=== PATIENT | female | born 1955 | race Hispanic/Latino ===

== ENCOUNTER 2024-04-01 10:16 | Emergency (ER) | payer OTHER ==
[~2024-04-01] VITALS: Ht 157.5 cm; Wt 57.2 kg
[~2024-04-01 10:16] MED LIST: AMOX1TAB16 PO; IBUP-2077 PO; INSU100I24 SQ; LISI30TA4 PO; METO50TA18 PO; PRAV10TA39 PO; PRED5TAB44 PO
[2024-04-01] MEDS: DEXTROSE 50%-WATER 50 ML DISP.SYRIN IV ONE ×2 (10:41→11:42)
[2024-04-01 11:02] LABS: ALBUMIN 2.7 g/dL (3.5-5.0); BILIRUBIN,TOTAL 0.4 mg/dL (0.2-1.0); CREATININE 0.8 mg/dL (0.5-1.0); POTASSIUM 3.4 mmol/L (3.5-5.1)
[2024-04-01 11:12] LABS: B-TYPE NATRIURETIC PEPTIDE 126 pg/mL (0-100)
[2024-04-01 11:13] LABS: APPEARANCE,URINE CLOUDY (CLEAR); BILIRUBIN,URINE NEGATIVE (NEGATIVE); COLOR,URINE LIGHT-ORANGE (YELLOW); GLUCOSE, URINE (UA) NEGATIVE (NEGATIVE); KETONES,URINE NEGATIVE (NEGATIVE); LEUKOCYTE ESTERASE ,URINE NEGATIVE Leu/uL (NEGATIVE); NITRATE,URINE NEGATIVE (NEGATIVE); OCCULT BLOOD,URINE NEGATIVE (NEGATIVE); PROTEIN,URINE 300 mg/dL (NEGATIVE); UROBILINOGEN,URINE 0.2 mg/dL (0.2-1.0)
[2024-04-01 11:15] LABS: ADD UA MICROSCOPIC YES
[2024-04-01 11:20] LABS: BASOPHILS # (AUTO) 0.05 K/uL (0.00-0.20); BASOPHILS % (AUTO) 0.6 % (0.0-5.0); EOSINOPHILS # (AUTO) 0.08 K/uL (0.00-0.70); EOSINOPHILS % (AUTO) 0.9 % (0.0-8.0); HEMATOCRIT 41.2 % (36-48); IMMATURE GRANULOCYTE ABSOLUTE 0.03 K/uL (0-1); LYMPHOCYTES # (AUTO) 2.4 K/uL (1.0-4.8); LYMPHOCYTES % (AUTO) 26.7 % (21.0-51.0); MEAN CORPUSCULAR HGB CONC 32.5 g/dL (32.0-36.0); MEAN CORPUSCULAR VOLUME 89.2 fL (79-99); MONOCYTES # (AUTO) 0.5 K/uL (0.1-1.0); MONOCYTES % (AUTO) 5.3 % (3.0-13.0); NEUTROPHILS % (AUTO) 66.2 % (40.0-77.0); PLATELET COUNT (AUTO) 258 K/uL (130-400); RED BLOOD CELL COUNT(AUTO) 4.62 MIL/uL (4.00-5.50); RED CELL DISTRIBUTION WIDTH 13.4 % (11.0-15.5); WHITE BLOOD COUNT (AUTO) 9.1 K/uL (4.8-10.8)
[2024-04-01 11:29] LABS: BACTERIA,URINE Many /HPF (None Seen); RBC,URINE 0-1 /HPF (0-1); SQUAMOUS EPITHELIAL CELL,UR Rare /HPF (0-2); WBC,URINE 0-1 /HPF (0-1)
[2024-04-01 13:36] VITALS: BP 170/69; PULSE 78; RESP 18; O2SAT 99
[2024-04-03] MEDS ORDERED: FERR-72 PO (10:00)
[2024-04-03] MEDS ORDERED: ONDA8TAB12 PO (10:03)
[2024-04-03] MEDS ORDERED: [UNRECOGNIZED DRUG - CODE] PO (10:03)
[2024-04-03] MEDS ORDERED: ALBU90AE2 IH (10:05)
[2024-04-05] MEDS ORDERED: AMOX1TAB16 PO (09:07)
== END 2024-04-01 14:51 | disposition home or self-care (01) ==
LOC: EDH 10:16
DX: E11.649 Type 2 diabetes mellitus with hypoglycemia without coma (principal); I10 Essential (primary) hypertension; E78.00 Pure hypercholesterolemia, unspecified; D64.9 Anemia, unspecified; Z79.899 Other long term (current) drug therapy; Z79.4 Long term (current) use of insulin
CPT/HCPCS: 99285; 96365; 70450; 71045; 82550; 84484; 80053; 83880; 85025; 87077; 87088; 87186; 82948 ×2; 81001; 36415; 93005; J7070

== ENCOUNTER 2024-05-16 16:11 | Observation (INO) | payer OTHER ==
[~2024-05-16] VITALS: Ht 154.9 cm; Wt 43.7 kg
[~2024-05-16 16:11] MED LIST changes: +ALBU90AE3 IH; +AMLO5TAB4 PO; -AMOX1TAB16 PO; +CEPH500B PO; +FERR-72 PO; -IBUP-2077 PO; -INSU100I24 SQ; +LEVO100T4 PO; +ONDA-245 PO; -PRED5TAB44 PO
[2024-05-16 16:34] LABS: BASOPHILS # (AUTO) 0.03 K/uL (0.00-0.20); BASOPHILS % (AUTO) 0.4 % (0.0-5.0); EOSINOPHILS # (AUTO) 0.02 K/uL (0.00-0.70); EOSINOPHILS % (AUTO) 0.2 % (0.0-8.0); HEMATOCRIT 34.8 % (36-48); IMMATURE GRANULOCYTE ABSOLUTE 0.03 K/uL (0-1); LYMPHOCYTES # (AUTO) 0.9 K/uL (1.0-4.8); LYMPHOCYTES % (AUTO) 10.8 % (21.0-51.0); MEAN CORPUSCULAR HEMOGLOBIN 33.8 pg (27.0-33.0); MEAN CORPUSCULAR HGB CONC 32.8 g/dL (32.0-36.0); MEAN CORPUSCULAR VOLUME 103.3 fL (79-99); MONOCYTES # (AUTO) 0.4 K/uL (0.1-1.0); MONOCYTES % (AUTO) 4.9 % (3.0-13.0); NEUTROPHILS % (AUTO) 83.3 % (40.0-77.0); PLATELET COUNT (AUTO) 285 K/uL (130-400); RED BLOOD CELL COUNT(AUTO) 3.37 MIL/uL (4.00-5.50); WHITE BLOOD COUNT (AUTO) 8.3 K/uL (4.8-10.8)
[2024-05-16 16:47] LABS: CREATININE 0.7 mg/dL (0.5-1.0); POTASSIUM 3.8 mmol/L (3.5-5.1)
[2024-05-16 16:52] LABS: ALBUMIN 2.1 g/dL (3.5-5.0); BILIRUBIN,TOTAL 0.2 mg/dL (0.2-1.0); TOTAL PROTEIN, SERUM 6.6 g/dL (6.0-8.3)
[2024-05-16 16:56] LABS: APPEARANCE,URINE CLEAR (CLEAR); BILIRUBIN,URINE NEGATIVE (NEGATIVE); COLOR,URINE LIGHT-YELLOW (YELLOW); GLUCOSE, URINE (UA) NEGATIVE (NEGATIVE); KETONES,URINE NEGATIVE (NEGATIVE); LEUKOCYTE ESTERASE ,URINE NEGATIVE Leu/uL (NEGATIVE); NITRATE,URINE NEGATIVE (NEGATIVE); OCCULT BLOOD,URINE MODERATE (NEGATIVE); PROTEIN,URINE NEGATIVE (NEGATIVE); UROBILINOGEN,URINE 0.2 mg/dL (0.2-1.0)
[2024-05-16] MEDS: CEFTRIAXONE 2GM VIAL IVPB ONE (16:57)
[2024-05-16] MEDS: DEXTROSE 5 % AND 0.9 % NACL 1,000 ML IV SCH (16:57)
[2024-05-16 17:04] LABS: ADD UA MICROSCOPIC YES
[2024-05-16 17:06] LABS: MUCUS,URINE RARE LPF (None Seen); RBC,URINE 0-1 /HPF (0-1); SQUAMOUS EPITHELIAL CELL,UR RARE /HPF (0-2); WBC,URINE 0-1 /HPF (0-1)
[2024-05-16] MEDS ORDERED: LACTULOSE 20 GM/30 ML UDCUP PO PRN (18:30)
[2024-05-16] MEDS ORDERED: HYDRALAZINE 20MG/ML VIAL IV PRN (18:30)
[2024-05-16] MEDS ORDERED: ONDANSETRON 4MG INJ IVP PRN (18:30)
[2024-05-16] MEDS ORDERED: LABETALOL 20MG SYG IV PRN (18:30)
[2024-05-16] MEDS: ERYTHROMYCIN BASE 0.5% OPHTH OINT 1 GM TUBE OS SCH (21:00)
[2024-05-16] MEDS: ACETAMINOPHEN 325 MG TAB PO PRN (21:38)
[2024-05-16] MEDS ORDERED: LORA0.5T83 PO (22:26)
[2024-05-16 23:00] VITALS: PULSE 65; RESP 18
[2024-05-16] MEDS: ALBUTEROL 0.083% 2.5 MG/3 ML INH IH PRN (23:00)
[2024-05-16 23:04] VITALS: PULSE 68; RESP 18; O2SAT 100
[2024-05-17] VITALS (14 sets, daily range): BP systolic 137–161; BP diastolic 56–77; PULSE 63–79; RESP 16–20; O2SAT 92–98
[2024-05-17 05:09] LABS: BASOPHILS # (AUTO) 0.03 K/uL (0.00-0.20); BASOPHILS % (AUTO) 0.5 % (0.0-5.0); EOSINOPHILS # (AUTO) 0.09 K/uL (0.00-0.70); EOSINOPHILS % (AUTO) 1.4 % (0.0-8.0); HEMATOCRIT 29.1 % (36-48); IMMATURE GRANULOCYTE ABSOLUTE 0.02 K/uL (0-1); LYMPHOCYTES # (AUTO) 1.3 K/uL (1.0-4.8); LYMPHOCYTES % (AUTO) 20.9 % (21.0-51.0); MEAN CORPUSCULAR HEMOGLOBIN 34.2 pg (27.0-33.0); MONOCYTES # (AUTO) 0.5 K/uL (0.1-1.0); MONOCYTES % (AUTO) 8.1 % (3.0-13.0); NEUTROPHILS # (AUTO) 4.4 K/uL (1.8-7.7); NEUTROPHILS % (AUTO) 68.8 % (40.0-77.0); PLATELET COUNT (AUTO) 238 K/uL (130-400); RED BLOOD CELL COUNT(AUTO) 2.72 MIL/uL (4.00-5.50); RED CELL DISTRIBUTION WIDTH 18.1 % (11.0-15.5); WHITE BLOOD COUNT (AUTO) 6.3 K/uL (4.8-10.8)
[2024-05-17 05:38] LABS: CREATININE 0.7 mg/dL (0.5-1.0); MAGNESIUM 1.7 mg/dL (1.80-2.40); PHOSPHORUS 3.4 mg/dL (2.5-4.9); POTASSIUM 3.5 mmol/L (3.5-5.1)
[2024-05-17] MEDS: LEVOTHYROXINE 100 MCG TABLET PO SCH (06:03)
[2024-05-17] MEDS ORDERED: POTASSIUM CHLORIDE 10MEQ/100ML 100 ML IV PRN (06:30)
[2024-05-17] MEDS ORDERED: POTASSIUM CHLORIDE 10% ELIXIR 20 MEQ/15 ML UDCUP PO PRN (06:30)
[2024-05-17] MEDS: MAGNESIUM 2GM PREMIX 50ML 50 ML IV PRN (06:32)
[2024-05-17] MEDS: PANTOPRAZOLE 40 MG TAB DR PO SCH (09:39)
[2024-05-17] MEDS: FERROUS SULFATE 325 MG TABLET.DR PO SCH (09:39)
[2024-05-17] MEDS: LISINOPRIL 20 MG TABLET PO SCH (09:39)
[2024-05-17] MEDS: METOPROLOL TARTRATE 50 MG TAB PO SCH (09:39)
[2024-05-17] MEDS: ENOXAPARIN SODIUM 40 MG/0.4 ML SYRINGE SQ SCH (09:39)
[2024-05-17] MEDS: AMLODIPINE 5 MG TAB PO SCH (09:40)
[2024-05-17] MEDS: ERYTHROMYCIN BASE 0.5% OPHTH OINT 1 GM TUBE OS SCH (13:27)
[2024-05-17 14:53] LABS: HEMOGLOBIN A1C 4.9 % (4.0-6.0)
[2024-05-17] MEDS: KCL 20 MEQ ERTAB PO PRN (20:51)
[2024-05-18] VITALS: BP 145/77; PULSE 57; RESP 18
[2024-05-18 03:45] VITALS: BP 142/70; PULSE 55; RESP 20
[2024-05-18 05:59] LABS: HEMATOCRIT 28.3 % (36-48); MEAN CORPUSCULAR HEMOGLOBIN 34.3 pg (27.0-33.0); MEAN CORPUSCULAR HGB CONC 32.2 g/dL (32.0-36.0); MEAN CORPUSCULAR VOLUME 106.8 fL (79-99); RED BLOOD CELL COUNT(AUTO) 2.65 MIL/uL (4.00-5.50); RED CELL DISTRIBUTION WIDTH 17.6 % (11.0-15.5); WHITE BLOOD COUNT (AUTO) 5.8 K/uL (4.8-10.8)
[2024-05-18 06:23] LABS: CREATININE 0.8 mg/dL (0.5-1.0); PHOSPHORUS 3.1 mg/dL (2.5-4.9); POTASSIUM 4.2 mmol/L (3.5-5.1)
[2024-05-18 06:57] VITALS: PULSE 70; RESP 20; O2SAT 99
[2024-05-18 08:00] VITALS: BP 158/71; PULSE 58; RESP 18; O2SAT 94
[2024-05-18 11:58] VITALS: BP 158/73; PULSE 58; RESP 19
[2024-05-18] MEDS ORDERED: INSU100I24 SQ (15:47)
[2024-05-18] MEDS ORDERED: INSU100V37 SQ (15:50)
== END 2024-05-18 17:40 | disposition home or self-care (01) ==
LOC: EDH 16:11 → EDHIP 18:28 → 3AH 21:30
PROVIDERS: ADMIT Internal Medicine Critical Care Medicine; ATTEND Internal Medicine Critical Care Medicine
DX: E11.649 Type 2 diabetes mellitus with hypoglycemia without coma (principal); H10.32 Unspecified acute conjunctivitis, left eye; D53.9 Nutritional anemia, unspecified; E88.09 Other disorders of plasma-protein metabolism, not elsewhere classified; E44.0 Moderate protein-calorie malnutrition; I10 Essential (primary) hypertension; E78.5 Hyperlipidemia, unspecified; E03.9 Hypothyroidism, unspecified; R41.82 Altered mental status, unspecified; R60.0 Localized edema; Z85.118 Personal history of other malignant neoplasm of bronchus and lung; Z79.4 Long term (current) use of insulin; Z85.528 Personal history of other malignant neoplasm of kidney; Z79.899 Other long term (current) drug therapy; Z68.1 Body mass index [BMI] 19.9 or less, adult
CPT/HCPCS: 96365; 84484; 80053; 83690; 85025 ×2; 87040 ×2; 82948 ×12; 82306; 83605; 81001; 36415 ×3; 71045 ×2; 93970; 99291; 93005; 94640; 94664; 96372 ×2; 96361 ×3; 96375; 83036; 83735 ×2; 84100 ×2; 80048 ×2; 82607; 82746; 85027; 97161; 97116; 84145; G0378 ×46; J7042; J0696; J3475; J1650 ×2

== ENCOUNTER 2024-07-28 08:31 | Inpatient (IN) | payer OTHER ==
[~2024-07-28] VITALS: Ht 160 cm; Wt 52.2 kg
[~2024-07-28 08:31] MED LIST changes: -CEPH500B PO; +INSU100V37 SQ; +LORA0.5T83 PO
[2024-07-28] MEDS: 0.9%NACL 1000ML 1,551 ML IV ONE (08:55)
[2024-07-28 08:57] LABS: BASOPHILS # (AUTO) 0.05 K/uL (0.00-0.20); BASOPHILS % (AUTO) 0.4 % (0.0-5.0); EOSINOPHILS # (AUTO) 0.01 K/uL (0.00-0.70); EOSINOPHILS % (AUTO) 0.1 % (0.0-8.0); HEMATOCRIT 37.2 % (36-48); IMMATURE GRANULOCYTE ABSOLUTE 0.08 K/uL (0-1); LYMPHOCYTES # (AUTO) 1.1 K/uL (1.0-4.8); LYMPHOCYTES % (AUTO) 9.3 % (21.0-51.0); MEAN CORPUSCULAR HEMOGLOBIN 35.4 pg (27.0-33.0); MEAN CORPUSCULAR HGB CONC 32.5 g/dL (32.0-36.0); MEAN CORPUSCULAR VOLUME 108.8 fL (79-99); MONOCYTES # (AUTO) 0.7 K/uL (0.1-1.0); MONOCYTES % (AUTO) 5.6 % (3.0-13.0); NEUTROPHILS % (AUTO) 83.9 % (40.0-77.0); NUCLEATED RED BLOOD CELLS 0.3 % (0.0-0.19); PLATELET COUNT (AUTO) 182 K/uL (130-400); RED BLOOD CELL COUNT(AUTO) 3.42 MIL/uL (4.00-5.50); RED CELL DISTRIBUTION WIDTH 18.9 % (11.0-15.5); WHITE BLOOD COUNT (AUTO) 11.9 K/uL (4.8-10.8)
[2024-07-28 09:15] LABS: ALANINE AMINOTRANSFERASE 11 U/L (12-78); ALBUMIN 0.9 g/dL (3.5-5.0); AMMONIA < 10 umol/L (11-32); ASPARTATE AMINOTRANSFERASE 41 U/L (10-37); BILIRUBIN,TOTAL 0.5 mg/dL (0.2-1.0); CARBON DIOXIDE 31 mmol/L (21-32); CHLORIDE 107 mmol/L (101-111); CREATININE 2.3 mg/dL (0.5-1.0); GLOMERULAR FILTR. RATE CALC 22 mL/min (>90); GLUCOSE,RANDOM 175 mg/dL (70-105); POTASSIUM 4.3 mmol/L (3.5-5.1); SODIUM SERUM 141 mmol/L (136-145); TOTAL PROTEIN, SERUM 4.5 g/dL (6.0-8.3)
[2024-07-28 09:17] LABS: UREA NITROGEN, BLOOD 81 mg/dL (7-18)
[2024-07-28] MEDS: ZOSYN 3.375GM +NS 50ML IV ONE (10:02)
[2024-07-28] MEDS ORDERED: doCUSate SODIUM 100 MG CAP PO PRN (10:30)
[2024-07-28] MEDS ORDERED: DiphenhydrAMINE HCL 25 MG CAPSULE PO PRN (10:30)
[2024-07-28] MEDS ORDERED: NITROGLYCERIN 0.4 MG SL TAB SL PRN (10:30)
[2024-07-28] MEDS ORDERED: polyETHYLene GLYCol 3350 17 GM POWD.PACK PO PRN (10:30)
[2024-07-28] MEDS ORDERED: guaiFENesin SUGAR-FREE 100 MG/5 ML UDCUP PO PRN (10:30)
[2024-07-28] MEDS ORDERED: ARTIFICAL TEARS SOL 15 ML OP PRN (10:30)
[2024-07-28] MEDS ORDERED: ONDANSETRON 4MG INJ IV PRN (10:30)
[2024-07-28] MEDS ORDERED: acetaMINOPHEN 325 MG TAB PO PRN ×2 (10:30)
[2024-07-28 10:31] LABS: INR 1.18 (0.85-1.15); PROTHROMBIN TIME 12.6 SEC (9.6-11.6)
[2024-07-28 10:33] LABS: PARTIAL THROMBOPLASTIN TIME 37.6 SEC (26.3-35.5)
[2024-07-28 10:35] LABS: APPEARANCE,URINE TURBID (CLEAR); BILIRUBIN,URINE LARGE mg/dL (NEGATIVE); GLUCOSE, URINE (UA) 250 mg/dL (NEGATIVE); KETONES,URINE 15 mg/dL (NEGATIVE); LEUKOCYTE ESTERASE ,URINE MODERATE Leu/uL (NEGATIVE); NITRATE,URINE POSITIVE (NEGATIVE); OCCULT BLOOD,URINE LARGE (NEGATIVE); PROTEIN,URINE >=300 mg/dL (NEGATIVE); UROBILINOGEN,URINE >=8.0 mg/dL (0.2-1.0)
[2024-07-28 10:36] LABS: ADD UA MICROSCOPIC YES
[2024-07-28 10:37] LABS: COLOR,URINE RED (YELLOW)
[2024-07-28 10:42] LABS: RBC,URINE TNTC /HPF (0-1)
[2024-07-28 10:43] LABS: WBC,URINE TNTC /HPF (0-1)
[2024-07-28 10:44] LABS: BACTERIA,URINE Many /HPF (None Seen); SQUAMOUS EPITHELIAL CELL,UR Rare /HPF (0-2)
[2024-07-28 10:56] LABS: ABG BASE EXCESS -0.7 mmol/L (-2.0-3.0); ABG HCO3 23.5 mmol/L (21.0-28.0); ABG OXYGEN SATURATION 94.7 % (94.0-98.0); ABG PCO2 38 mmHg (32-45); ABG PH 7.411 (7.350-7.450); PO2, ARTERIAL BG 71.8 mmHg (83.0-108.0); VENT MODE, BG RA (ROOM AIR)
[2024-07-28] MEDS: INSULIN humuLIN R 100 UNIT/ML 3ML SQ SCH (11:30)
[2024-07-28 11:45] LABS: THYROID STIMULATING HORMONE 48.17 uIU/mL (0.36-3.74)
[2024-07-28] MEDS: 0.9%NACL 1000ML 1,000 ML IV SCH (11:50)
[2024-07-28 13:28] VITALS: BP 124/70; PULSE 67; RESP 16; TEMP 96.3
[2024-07-28 16:00] VITALS: BP 141/87; PULSE 64; RESP 16; TEMP 96.5
[2024-07-28] MEDS ORDERED: VANCOMYCIN PROTOCOL PER PHARMACY IV SCH (16:30)
[2024-07-28] MEDS: VANCOMYCIN 1.25 GM/250 ML BAG 250 ML IV ONE (18:40)
[2024-07-28] MEDS: ceFEPime HCL 1 GM VIAL IVPB SCH (18:46)
[2024-07-28 19:35] VITALS: BP 125/73; PULSE 72; RESP 18; TEMP 97.6
[2024-07-28 20:04] VITALS: O2SAT 99
[2024-07-28 20:15] VITALS: O2SAT 100
[2024-07-28] MEDS: PANTOPRAZOLE 40 MG/VIAL IVP SCH (21:45)
[2024-07-29] VITALS (9 sets, daily range): BP systolic 103–147; BP diastolic 55–84; PULSE 60–91; RESP 13–18; TEMP 97–98.8; O2SAT 100
[2024-07-29 03:52] LABS: BASOPHILS # (AUTO) 0.07 K/uL (0.00-0.20); BASOPHILS % (AUTO) 0.5 % (0.0-5.0); EOSINOPHILS # (AUTO) 0.08 K/uL (0.00-0.70); EOSINOPHILS % (AUTO) 0.6 % (0.0-8.0); HEMATOCRIT 34.2 % (36-48); IMMATURE GRANULOCYTE ABSOLUTE 0.14 K/uL (0-1); LYMPHOCYTES # (AUTO) 1.9 K/uL (1.0-4.8); LYMPHOCYTES % (AUTO) 13.2 % (21.0-51.0); MEAN CORPUSCULAR HEMOGLOBIN 35.1 pg (27.0-33.0); MEAN CORPUSCULAR HGB CONC 32.5 g/dL (32.0-36.0); MEAN CORPUSCULAR VOLUME 108.2 fL (79-99); MONOCYTES # (AUTO) 0.9 K/uL (0.1-1.0); MONOCYTES % (AUTO) 6.1 % (3.0-13.0); NEUTROPHILS # (AUTO) 11.2 K/uL (1.8-7.7); NEUTROPHILS % (AUTO) 78.6 % (40.0-77.0); NUCLEATED RED BLOOD CELLS 0.4 % (0.0-0.19); PLATELET COUNT (AUTO) 172 K/uL (130-400); RED BLOOD CELL COUNT(AUTO) 3.16 MIL/uL (4.00-5.50); RED CELL DISTRIBUTION WIDTH 18.5 % (11.0-15.5); WHITE BLOOD COUNT (AUTO) 14.2 K/uL (4.8-10.8)
[2024-07-29 04:00] LABS: HEMOGLOBIN A1C 5.8 % (4.0-6.0)
[2024-07-29 04:37] LABS: ALBUMIN 0.9 g/dL (3.5-5.0); BILIRUBIN,TOTAL 0.5 mg/dL (0.2-1.0); CREATININE 1.6 mg/dL (0.5-1.0); POTASSIUM 3.9 mmol/L (3.5-5.1); THYROID STIMULATING HORMONE 54.21 uIU/mL (0.36-3.74); TOTAL PROTEIN, SERUM 4.4 g/dL (6.0-8.3)
[2024-07-29 04:43] LABS: B-TYPE NATRIURETIC PEPTIDE 163 pg/mL (0-100)
[2024-07-29 05:26] LABS: ERYTHROCYTE SEDIMENTATION RATE 41 MM/HR (0-30)
[2024-07-29] MEDS: metRONIDazole 500 MG TABLET PO SCH (17:12)
[2024-07-29] MEDS: VANCOMYCIN 500MG+NS 100ML 100 ML IV SCH (17:13)
[2024-07-29] MEDS: NYSTatin 15 GM POWDER TP SCH (22:52)
[2024-07-29] MEDS: ZINC OXIDE OINT 30GM TUBE TP SCH (22:52)
[2024-07-30] VITALS (8 sets, daily range): BP systolic 113–137; BP diastolic 53–72; PULSE 69–90; RESP 16–18; TEMP 97.1–98.1; O2SAT 95–96
[2024-07-30 03:40] LABS: BASOPHILS # (AUTO) 0.06 K/uL (0.00-0.20); BASOPHILS % (AUTO) 0.4 % (0.0-5.0); EOSINOPHILS # (AUTO) 0.08 K/uL (0.00-0.70); EOSINOPHILS % (AUTO) 0.6 % (0.0-8.0); HEMATOCRIT 31.8 % (36-48); IMMATURE GRANULOCYTE ABSOLUTE 0.24 K/uL (0-1); LYMPHOCYTES # (AUTO) 1.3 K/uL (1.0-4.8); LYMPHOCYTES % (AUTO) 9.6 % (21.0-51.0); MEAN CORPUSCULAR HEMOGLOBIN 34.9 pg (27.0-33.0); MEAN CORPUSCULAR HGB CONC 32.1 g/dL (32.0-36.0); MEAN CORPUSCULAR VOLUME 108.9 fL (79-99); MONOCYTES % (AUTO) 7.3 % (3.0-13.0); NEUTROPHILS # (AUTO) 11.2 K/uL (1.8-7.7); NEUTROPHILS % (AUTO) 80.4 % (40.0-77.0); NUCLEATED RED BLOOD CELLS 0.7 % (0.0-0.19); PLATELET COUNT (AUTO) 166 K/uL (130-400); RED BLOOD CELL COUNT(AUTO) 2.92 MIL/uL (4.00-5.50); RED CELL DISTRIBUTION WIDTH 18.9 % (11.0-15.5); WHITE BLOOD COUNT (AUTO) 13.9 K/uL (4.8-10.8)
[2024-07-30 03:59] LABS: ALBUMIN 0.9 g/dL (3.5-5.0); BILIRUBIN,TOTAL 0.4 mg/dL (0.2-1.0); CREATININE 1.5 mg/dL (0.5-1.0); POTASSIUM 3.8 mmol/L (3.5-5.1); TOTAL PROTEIN, SERUM 4.2 g/dL (6.0-8.3)
[2024-07-30] MEDS ORDERED: morPHINE 2 MG SYG IVP PRN (13:30)
[2024-07-30] MEDS ORDERED: LORazepam 2 MG/ML 1 ML VIAL IM PRN (13:30)
[2024-07-30] MEDS ORDERED: LORazepam 2 MG/ML 1 ML VIAL IVP PRN (19:30)
[2024-07-31] VITALS: BP 121/59; PULSE 83; RESP 18; TEMP 97.6
[2024-07-31 04:00] VITALS: BP 118/57; PULSE 81; RESP 20; TEMP 97.9
[2024-07-31 08:36] VITALS: O2SAT 92
[2024-07-31 09:13] VITALS: BP 126/75; PULSE 86; RESP 16; TEMP 98
== END 2024-07-31 17:50 | disposition hospice, home (50) | DRG 871 ==
LOC: EDBD 08:31 → EDH 08:31 → EDHIP 10:30 → 2AH 13:28 → 3AH 07-30 15:32
PROVIDERS: ADMIT Internal Medicine; ATTEND Internal Medicine
DX: A41.9 Sepsis, unspecified organism (principal); G93.41 Metabolic encephalopathy; I21.A1 Myocardial infarction type 2; R65.21 Severe sepsis with septic shock; N30.01 Acute cystitis with hematuria; N17.9 Acute kidney failure, unspecified; M62.82 Rhabdomyolysis; E44.0 Moderate protein-calorie malnutrition; K82.1 Hydrops of gallbladder; Z20.822 Contact with and (suspected) exposure to COVID-19; I10 Essential (primary) hypertension; E03.9 Hypothyroidism, unspecified; E11.9 Type 2 diabetes mellitus without complications; E78.00 Pure hypercholesterolemia, unspecified; E86.0 Dehydration; K80.20 Calculus of gallbladder without cholecystitis without obstruction; N95.0 Postmenopausal bleeding; Z51.5 Encounter for palliative care; Z66 Do not resuscitate; Z79.4 Long term (current) use of insulin; Z85.118 Personal history of other malignant neoplasm of bronchus and lung; Z85.528 Personal history of other malignant neoplasm of kidney; Z92.21 Personal history of antineoplastic chemotherapy; Z79.899 Other long term (current) drug therapy; Z68.20 Body mass index [BMI] 20.0-20.9, adult
CPT/HCPCS: 36415; 36600; 70450; 71045; 71250; 74176; 76705; 76856; 80053; 81001; 82140; 82533; 82550; 82803; 82948; 83036; 83605; 83690; 83735; 83880; 84145; 84439; 84443; 84480; 84484; 85018; 85025; 85610; 85651; 85730; 86140; 86850; 86900; 86901; 87040; 87086; 87186; 87426; 92610; 93005; 93306; G0378; J0692; J2470; J2543; J3370; J7030; 3370